=== PATIENT | male | born 1960 | race African-American/Black ===

== ENCOUNTER 2017-09-16 05:59 | Inpatient (IN) ==
[2017-09-16] MEDS ORDERED: MORPHINE 4 MG/1 ML VIAL IV PRN (10:34)
[2017-09-16] MEDS ORDERED: POTASSIUM CHLORIDE 20 MEQ TABLET PO PRN ×2 (10:34)
[2017-09-16] MEDS ORDERED: ONDANSETRON 4 MG/2 ML VIAL IV PRN (10:34)
[2017-09-16] MEDS ORDERED: MAGNESIUM HYDROXIDE SUSP 30 ML UDCUP PO PRN (10:34)
[2017-09-16] MEDS ORDERED: MAGNESIUM SULF RIDER 4 GM in PREMIX 1 EACH IV PRN (10:34)
[2017-09-16] MEDS ORDERED: ZALEPLON 5 MG CAPSULE PO PRN (10:34)
[2017-09-16] MEDS ORDERED: BISACODYL 5 MG TABLET PO PRN (10:34)
[2017-09-16] MEDS ORDERED: MAGNESIUM SULF RIDER 2 GM in PREMIX 1 EACH IV PRN ×2 (10:34→11:10)
[2017-09-16] MEDS: PANTOPRAZOLE 40 MG TABLET PO SCH (10:58)
[2017-09-16] MEDS ORDERED: PRAVASTATIN 40 MG TABLET PO SCH (11:00)
[2017-09-16] MEDS ORDERED: SODIUM CHLORIDE 0.45% 1,000 ML IV SCH (11:00)
[2017-09-16 11:06] LABS: Basophils % 0.5 % (0.0-0.8); Eosinophils # 0.1 10*3/uL (0.0-0.87); Eosinophils % 2.2 % (0.00-10.9); Hematocrit 43.8 VOL% (42.0-52.0); Hemoglobin 14.6 GM/DL (14.0-18.0); Immature Granulocytes % 0.2 %; Immature Granulocytes Absolute 0.01 #; Lymphocytes # 2.3 10*3/uL (1.4-4.0); Lymphocytes % 35.5 % (21.2-54.2); Mean Corpuscular HGB Conc 33.3 GM/DL (32-36); Mean Corpuscular Hemoglobin 27 PG (27-34); Mean Corpuscular Volume 81.1 FL (87-102); Mean Platelet Volume 10.1 FL (9.6-12.0); Monocytes # 0.4 10*3/uL (0.11-0.8); Monocytes % 6.2 % (1.7-12.7); Neutrophils # 3.5 10*3/uL (1.4-7.4); Neutrophils % 55.4 % (38.7-73.9); Platelet Count 228 T/CUMM (130-400); Red Cell Distribution Width 13.6 % (9.3-17.3); White Blood Count 6.3 T/CUMM (4-12)
[2017-09-16] MEDS ORDERED: DIAZEPAM 5 MG TABLET PO ONE (11:10)
[2017-09-16] MEDS ORDERED: POTASSIUM CHLORIDE RIDER 10 MEQ in PREMIX 1 EACH IV PRN (11:10)
[2017-09-16] MEDS ORDERED: diphenhydrAMINE CAP 25 MG CAPSULE PO ONE (11:10)
[2017-09-16 11:22] LABS: PT Patient Result 10.4 SECS
[2017-09-16] MEDS ORDERED: METOPROLOL TARTRATE 25 MG TABLET PO ONE (11:22)
[2017-09-16 11:39] LABS: Alanine Aminotransferase 42 U/L (16-61); Albumin 4.3 G/DL (3.4-5.0); Alkaline Phosphatase 48 U/L (45-117); Aspartate Amino Transferase 40 U/L (0-37); Bilirubin,Total < 0.39 MG/DL (0.2-1.0); Blood Urea Nitrogen 10 MG/DL (7-18); Calcium 8.8 MG/DL (8.5-10.1); Cholesterol 183 MG/DL (50-200); Glucose 99 MG/DL (74-106); HDL Cholesterol 52 MG/DL (40-60); Osmolality,Calculated 277.4 MOS/KG (273-304); Potassium 4.1 MMOL/L (3.5-5.1); Risk Ratio 3.52; Sodium 140 MMOL/L (136-145); Triglycerides 86 MG/DL (2-150); VLDL CHOLESTEROL 17.2 MG/DL
[2017-09-16 12:09] LABS: CKMB % 2.1 %
[2017-09-16 12:11] LABS: Troponin I Only 2.15 NG/ML (0.00-0.045)
[2017-09-16] MEDS ORDERED: NITROGLYCERIN DRIP 50 MG/250 ML BOTTLE IV ONE (13:21)
[2017-09-16] MEDS ORDERED: VERAPAMIL 5 MG/2 ML VIAL ONE (13:22)
[2017-09-16] MEDS ORDERED: MIDAZOLAM 2 MG/2 ML VIAL ONE ×2 (13:22→13:42)
[2017-09-16] MEDS ORDERED: fentaNYL 100 MCG/2 ML VIAL ONE (13:22)
[2017-09-16] MEDS ORDERED: HEPARIN/NACL 0.9% 2 UNITS/ML 1,000 ML IV ONE (13:23)
[2017-09-16] MEDS ORDERED: ASPIRIN CHEW 81 MG TABLET PO ONE (13:33)
[2017-09-16] MEDS ORDERED: ENOXAPARIN 60 MG/0.6 ML SYRINGE ONE (13:44)
[2017-09-16] MEDS ORDERED: TIROFIBAN 5,000 MCG/100 ML PREMIX IV ONE (13:52)
[2017-09-16] MEDS ORDERED: TICAGRELOR 90 MG TABLET ONE (14:15)
[2017-09-16] MEDS ORDERED: ADENOSINE 6 MG/2 ML VIAL ONE (14:15)
[2017-09-16] MEDS: LOSARTAN 25 MG TABLET PO SCH (14:50)
[2017-09-16] MEDS ORDERED: diphenhydrAMINE CAP 25 MG CAPSULE PO PRN (15:13)
[2017-09-16] MEDS: ACETAMINOPHEN 325 MG TABLET PO PRN (16:33)
[2017-09-16 17:45] LABS: CKMB % 2.5 %
[2017-09-16 17:50] LABS: Troponin I Only 3.31 NG/ML (0.00-0.045)
[2017-09-16] MEDS ORDERED: ALUMINUM/MAGNES/SIMETH MAX STR 30 ML UDCUP PO PRN (18:21)
[2017-09-16] MEDS ORDERED: ATORVASTATIN 80 MG TABLET PO SCH (21:00)
[2017-09-16 21:13] LABS: CKMB % 2.8 %
[2017-09-16 21:18] LABS: Troponin I Only 3.58 NG/ML (0.00-0.045)
[2017-09-16] MEDS: TICAGRELOR 90 MG TABLET PO SCH (21:27)
[2017-09-16] MEDS: CARVEDILOL 3.125 MG TABLET PO SCH (21:28)
[2017-09-17 01:45] LABS: Basophils % 0.4 % (0.0-0.8); Eosinophils # 0.3 10*3/uL (0.0-0.87); Eosinophils % 3.6 % (0.00-10.9); Hematocrit 42.3 VOL% (42.0-52.0); Hemoglobin 13.9 GM/DL (14.0-18.0); Immature Granulocytes % 0.1 %; Immature Granulocytes Absolute 0.01 #; Lymphocytes # 2.2 10*3/uL (1.4-4.0); Lymphocytes % 30.2 % (21.2-54.2); Mean Corpuscular HGB Conc 32.9 GM/DL (32-36); Mean Corpuscular Hemoglobin 27 PG (27-34); Mean Corpuscular Volume 82.6 FL (87-102); Mean Platelet Volume 10.3 FL (9.6-12.0); Monocytes # 0.5 10*3/uL (0.11-0.8); Monocytes % 7.4 % (1.7-12.7); Neutrophils # 4.2 10*3/uL (1.4-7.4); Neutrophils % 58.3 % (38.7-73.9); Platelet Count 219 T/CUMM (130-400); Red Blood Count 5.12 MC/CUMM (3.8-5.5); Red Cell Distribution Width 13.6 % (9.3-17.3); White Blood Count 7.2 T/CUMM (4-12)
[2017-09-17 02:15] LABS: Calcium 8.4 MG/DL (8.5-10.1); Osmolality,Calculated 273.7 MOS/KG (273-304); Potassium 3.8 MMOL/L (3.5-5.1)
[2017-09-17 02:19] LABS: Risk Ratio 4.02; VLDL CHOLESTEROL 30.6 MG/DL
[2017-09-17 02:21] LABS: CKMB % 3.1 %
[2017-09-17 02:24] LABS: Troponin I Only 4.26 NG/ML (0.00-0.045)
[2017-09-17] MEDS: ACETAMINOPHEN 325 MG TABLET PO PRN ×2 (04:50→10:51)
[2017-09-17] MEDS: CARVEDILOL 3.125 MG TABLET PO SCH (08:29)
[2017-09-17] MEDS: PANTOPRAZOLE 40 MG TABLET PO SCH (08:29)
[2017-09-17] MEDS: TICAGRELOR 90 MG TABLET PO SCH (08:29)
[2017-09-17] MEDS ORDERED: ASPIRIN EC 81 MG TABLET PO SCH (09:00)
[2017-09-17] MEDS: LOSARTAN 25 MG TABLET PO SCH (10:52)
[2017-09-17 11:34] VITALS: BP 149/77
== END 2017-09-17 11:24 | disposition home or self-care (01) | DRG 247 ==
LOC: N.CC 07:40 → INTOOBSV 07:40 → N.TELEN 16:06
PROVIDERS: ADMIT Internal Medicine Cardiovascular Disease; ATTEND Internal Medicine Cardiovascular Disease
PROC: CLCCHCL (ICD-10-PCS; 2017-09-16 12:45)